=== PATIENT | female | born 1985 | race Caucasian/White ===

== ENCOUNTER → 2018-09-14 | Outpatient (CLI) | payer BC ==
[~2018-09-14] MED LIST: NORCO 325 MG-51 TAB PO; PROMETHAZINE12.5 M5 PO; SPRINTEC 35 MCG1 TAB PO
== END ==
LOC: BHSO 13:33
DX: F43.23 Adjustment disorder with mixed anxiety and depressed mood (principal)

== ENCOUNTER → 2018-10-05 | Outpatient (CLI) | payer BC | LOC: BHSO 14:45 | DX: F40.10 Social phobia, unspecified (principal) ==

== ENCOUNTER → 2018-10-19 | Outpatient (CLI) | payer BC | LOC: BHSO 13:55 | DX: F41.1 Generalized anxiety disorder (principal) ==

== ENCOUNTER → 2018-11-09 | Outpatient (CLI) | payer BC | LOC: BHSO 14:44 | DX: F43.23 Adjustment disorder with mixed anxiety and depressed mood (principal) ==

== ENCOUNTER → 2019-01-06 | Outpatient (CLI) | payer BC | LOC: BHSO 14:46 | DX: F43.21 Adjustment disorder with depressed mood (principal) ==

== ENCOUNTER → 2019-01-27 | Outpatient (CLI) | payer BC | LOC: BHSO 14:46 | DX: F43.23 Adjustment disorder with mixed anxiety and depressed mood (principal) ==

== ENCOUNTER → 2019-03-03 | Outpatient (CLI) | payer BC | LOC: BHSO 13:51 | DX: F43.23 Adjustment disorder with mixed anxiety and depressed mood (principal) ==

== ENCOUNTER → 2019-03-22 | Outpatient (CLI) | payer BC | LOC: BHSO 14:52 | DX: F43.23 Adjustment disorder with mixed anxiety and depressed mood (principal) ==